=== PATIENT | male | born 1960 | race Two or more races ===

== ENCOUNTER 2016-08-12 10:55 | Emergency (ER) | payer MEDICAID, OTHER ==
[~2016-08-12] VITALS: Ht 177.8 cm; Wt 81.6 kg
[~2016-08-12 10:55] MED LIST: GLIPIZIDE5 MG ORAL; HYDROCHLOROTH12.5 M2 ORAL; LISINOPRIL2.5 MG ORAL; METFORMIN HCL500 M1 ORAL; NAPROXEN250 M1 PO
[2016-08-12] MEDS ORDERED: NKM (11:10)
[2016-08-12 11:16] VITALS: BP 159/84
[2016-08-12] MEDS ORDERED: IBUPROFEN600 MG ORAL (11:43)
[2016-08-12] MEDS ORDERED: ROBAXIN-750750 MG PO (11:43)
[2016-08-12] MEDS ORDERED: Oxycodone/Acetaminophen 5-325 ORAL ONE (11:45)
[2016-08-12 11:51] VITALS: BP 142/76
--- NOTE | 2016-08-12 11:54 | Emergency Room Report ---
History of Present Illness General Chief Complaint: Pain Source: Patient Present Illness HPI 56 YO M with 8 days of right lower back pain radiating down to right food. Worse in morning, better throughout day especially with walking. 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 Denies trauma. Denies urinary/fecal incontinence, lower extremity weakness, fever/chills, previous known back problems/surgery. Not taking OTC meds. Doesnt have PMD. Allergies: Coded Allergies: No Known Allergies (Unverified , 10/30/14) Patient History Past Medical History: none Past Surgical History: none Social History: Denies: alcohol use, drug use, smoking Immunizations: UTD Reviewed Nursing Documentation: PMH: Agreed, PSxH: Agreed Nursing Documentation-PMH Hx Hypertension: Yes Hx Diabetes: Yes Review of Systems All Other Systems: negative except mentioned in HPI Physical Exam Vital Signs Date Time Temp Pulse Resp B/P Pulse Ox O2 Delivery O2 Flow Rate FiO2 08/12/16 11:01 98.8 104 16 159/84 98 Room Air Sp02 EP Interpretation: reviewed, normal General Appearance: normal inspection, well appearing, no apparent distress, alert, GCS 15, non-toxic Head: normocephalic, atraumatic Eyes: bilateral eye EOMI, bilateral eye PERRL ENT: normal ENT inspection, hearing grossly normal, normal voice Neck: normal inspection, full range of motion, supple, no bony tend Respiratory: normal inspection, lungs clear, normal breath sounds, no respiratory distress, no retraction, no wheezing Cardiovascular #1: regular rate, rhythm, no edema Genitourinary: no CVA tenderness Musculoskeletal: normal inspection, back normal, normal range of motion, Wilmer' s Sign negative, other - + right sided SL raise test Neurologic: normal inspection, alert, oriented x3, responsive, die casting machine setter III-XII nml as tested, motor strength/tone normal, cerebellar normal, normal gait, speech normal Psychiatric: normal inspection, judgement/insight normal, mood/affect normal Skin: normal inspection, normal color, no rash Medical Decision Making Diagnostic Impression: Primary Impression: Sciatica of right side Additional Impression: Sciatica Qualified Codes: M54.31 - Sciatica, right side ER Course A: low suspicion for cord compression given well appearance, right paravertebral ttp with +SL raise test, no focal neuro deficits, absence of midline ttp/masses and pain worse with movement with known exacerbating activity Analgesia provided here Rx Robaxin/Ibuprofen and recommended PMD followup DC home Last Vital Signs Date Time Temp Pulse Resp B/P Pulse Ox O2 Delivery O2 Flow Rate FiO2 08/12/16 11:16 98.8 16 159/84 98 Room Air 08/12/16 11:01 104 Status: improved Disposition: HOME, SELF-CARE Condition: Improved Scripts Methocarbamol* (ROBAXIN-750*) 750 Mg Tablet 750 MG PO TID, #30 TAB 0 Refills Prov: MARYAN FRENCH M.D. 08/12/16 Ibuprofen* (MOTRIN*) 600 Mg Tablet 800 MG ORAL THREE TIMES A DAY, #30 TAB 0 Refills Prov: MARYAN FRENCH M.D. 08/12/16 Referrals: NOT CHOSEN IPA/,REFERRING (PCP) Patient Instructions: Sciatica, [id number] Additional Instructions: - Take ibuprofen with robaxin up to 3x a day with food as needed for pain - Apply both heat and ice to lower back for pain to see what works better - Follow up with your primary doctor in 2-3 days MARYAN FRENCH M.D. Aug 12, 2016 11:54
== END 2016-08-12 11:50 | disposition home or self-care (01) ==
LOC: EMR 11:40
DX: M54.31 Sciatica, right side (principal); I10 Essential (primary) hypertension; E11.9 Type 2 diabetes mellitus without complications
CPT/HCPCS: 99282

== ENCOUNTER 2018-02-26 18:45 | Observation (INO) | payer OTHER ==
[~2018-02-26] VITALS: Ht 177.8 cm; Wt 89.8 kg
[~2018-02-26 18:45] MED LIST changes: +IBUPROFEN600 MG ORAL; +NKM; +ROBAXIN-750750 MG PO
[2018-02-26 19:00] VITALS: BP 142/60
[2018-02-26] MEDS ORDERED: Morphine Sulfate 4mg/ml Inj (IV USE ONLY) IVP ONE (19:15)
--- NOTE | 2018-02-26 20:06 | Emergency Room Report ---
History of Present Illness General Chief Complaint: Laceration Source: Patient Present Illness HPI 57-year-old male presents to the emergency department complaining of 10 out of 10 in severity pain to the fourth and fifth fingers of the left hand. Status post sustained laceration while changing brakes. Patient states that he is right-hand dominant. Patient is reporting that he is unable to bend the left ring finger. He is up-to-date with tetanus vaccination denies taking blood thinning medications. Allergies: Coded Allergies: No Known Allergies (Unverified , 10/30/14) Patient History Past Medical History: see triage record Past Surgical History: none Pertinent Family History: none Immunizations: UTD Reviewed Nursing Documentation: PMH: Agreed; PSxH: Agreed Nursing Documentation-PMH Past Medical History: No History, Except For Hx Hypertension: Yes Hx Diabetes: Yes Review of Systems All Other Systems: negative except mentioned in HPI Physical Exam Vital Signs Date Time Temp Pulse Resp B/P (MAP) Pulse Ox O2 Delivery O2 Flow Rate FiO2 02/26/18 18:50 97.4 113 24 142/60 92 Room Air 97.3 Sp02 EP Interpretation: reviewed, normal General Appearance: alert, GCS 15, non-toxic, mild distress Head: normocephalic, atraumatic Eyes: bilateral eye normal inspection, bilateral eye PERRL ENT: hearing grossly normal, normal voice Neck: full range of motion Respiratory: lungs clear, normal breath sounds, speaking full sentences Cardiovascular #1: regular rate, rhythm, normal capillary refill Musculoskeletal: back normal, gait/station normal, normal range of motion, non- tender, other - unable to flex the left 4th digit, extension is normal. Neurologic: alert, oriented x3, responsive, motor strength/tone normal, sensory intact, speech normal, grossly normal Psychiatric: judgement/insight normal Skin: normal color, no rash, warm/dry, well hydrated, laceration - Left ring finger laceration, located on the palmar surface of the proximal portion of the phalanx. it is approx 3 cm in length with flexor tendon involvement. pt. Unable to flex the left 4th digit. Second: Left 5th finger laceration, located on the palmar surface of the proximal portion of the phalanx. it is approx 2 cm in length Lymphatic: no adenopathy Medical Decision Making PA Attestation Dr. Antonio is my supervising Physician whom patient management has been discussed with. Diagnostic Impression: Primary Impression: Laceration Additional Impression: Flexor tendon laceration, finger, open wound Qualified Codes: S56.129A - Laceration of flexor muscle, fascia and tendon of unspecified finger at forearm level, initial encounter; S61.209A - Unspecified open wound of unspecified finger without damage to nail, initial encounter ER Course 57-year-old male presents to the emergency department complaining of 10 out of 10 in severity pain to the fourth and fifth fingers of the left hand. Status post sustained laceration while changing brakes. Patient states that he is right-hand dominant. Patient is reporting that he is unable to bend the left ring finger. He is up-to-date with tetanus vaccination denies taking blood thinning medications. 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 Ddx considered but are not limited to laceration, tendon injury, cellulitis, amputation Vital signs: are WNL, pt. is afebrile H&PE are most consistent with: 1) Left ring finger laceration, located on the palmar surface of the proximal portion of the phalanx. it is approx 3 cm in length with flexor tendon involvement. pt. Unable to flex the left 4th digit. 2) Left 5th finger laceration, located on the palmar surface of the proximal portion of the phalanx. it is approx 2 cm in length ORDERS: --CBC,CMP: mild hyponatremia -PT/PTT: Unremarkable/ WNL -Type and Screen: A Positive -EKG : 100bpm NSR. ED INTERVENTIONS: - 4mg Morphine IM -Tetanus vaccine was administered as pt. vaccination status was unknown. - The wound was copiously irrigated with normal saline, and explored for foreign body for which no FB was found. -- After physical exam and wound exploration I determined that this case is more extensive and will require surgical consult as I suspect a significant tendon injury to the flexor tendons of the left ring finger. CONSULT: Dr. Kumar: After evaluation, assistant professor surgical technology concluded that surgical repair is necessary and needs to take place in the operating room in order to properly retrieve and repair tendons in hopes of restoring function to the finger. DISPOSITION: This patient is stable for discharge to Dr. Kumar for same-day outpatient surgery. Labs Test 02/26/18 20:20 White Blood Count 5.5 K/UL (4.8-10.8) Red Blood Count 4.44 M/UL (4.70-6.10) Hemoglobin 14.4 G/DL (14.2-18.0) Hematocrit 40.2 % (42.0-52.0) Mean Corpuscular Volume 91 FL (80-99) Mean Corpuscular Hemoglobin 32.3 PG (27.0-31.0) Mean Corpuscular Hemoglobin Concent 35.7 G/DL (32.0-36.0) Red Cell Distribution Width 10.0 % (11.6-14.8) Platelet Count 230 K/UL (150-450) Mean Platelet Volume 6.2 FL (6.5-10.1) Neutrophils (%) (Auto) 64.8 % (45.0-75.0) Lymphocytes (%) (Auto) 22.3 % (20.0-45.0) Monocytes (%) (Auto) 10.2 % (1.0-10.0) Eosinophils (%) (Auto) 0.9 % (0.0-3.0) Basophils (%) (Auto) 1.8 % (0.0-2.0) Prothrombin Time 10.8 SEC (9.30-11.50) Prothromb Time International Ratio 1.0 (0.9-1.1) Activated Partial Thromboplast Time 27 SEC (23-33) Sodium Level 134 MMOL/L (136-145) Potassium Level 3.8 MMOL/L (3.5-5.1) Chloride Level 99 MMOL/L (98-107) Carbon Dioxide Level 25 MMOL/L (21-32) Anion Gap 10 mmol/L (5-15) Blood Urea Nitrogen 7 mg/dL (7-18) Creatinine 0.9 MG/DL (0.55-1.30) Estimat Glomerular Filtration Rate > 60 mL/min (>60) Glucose Level 131 MG/DL (74-106) Calcium Level 8.8 MG/DL (8.5-10.1) Total Bilirubin 0.6 MG/DL (0.2-1.0) Aspartate Amino Transf (AST/SGOT) 48 U/L (15-37) Alanine Aminotransferase (ALT/SGPT) 42 U/L (12-78) Alkaline Phosphatase 89 U/L (46-116) Total Protein 7.9 G/DL (6.4-8.2) Albumin 3.6 G/DL (3.4-5.0) Globulin 4.3 g/dL Albumin/Globulin Ratio 0.8 (1.0-2.7) EKG Diagnostic Results EP Interpretation: Dr. Antonio Rate: normal - 100bpm Rhythm: NSR ST Segments: no acute changes ASA given to the pt in ED: No PA Scribe Text This Interpretation was scribed by SUNDAY Araiza. Other X-Ray Diagnostic Results Other X-Ray Diagnostic Results : X-Ray ordered: Hand Left # of Views/Limited Vs Complete: 3 View Indication: Pain EP Interpretation: Yes PA Xray: Interpretation reviewed, by supervising MD, and agrees with findings. Interpretation: no dislocation, no fractures, other - soft tissue laceration 4th and 5th digits Impression: Other - abnormal Electronically Signed by: Amina Araiza PA-C Last Vital Signs Date Time Temp Pulse Resp B/P (MAP) Pulse Ox O2 Delivery O2 Flow Rate FiO2 02/26/18 19:19 97.4 02/26/18 18:50 113 24 142/60 92 Room Air Disposition: HOME, SELF-CARE - direct to sameday outpatient surgery in [facility]- Dr. Kumar Condition: Stable Referrals: RU KUMAR M.D. Patient Instructions: Laceration Care, Adult Additional Instructions: Take medications as directed. * Directly going to OR for same day surgical repair by Dr. Kumar. Follow up with Dr. Ru Kumar at the time frame instructed by him - Below is his referral information Return sooner to ED if new symptoms occur, or current symptoms become worse. - Please note that this Emergency Department Report was dictated using [employer] administrator technology software, occasionally this can lead to erroneous entry secondary to interpretation by the dictation equipment. Amina Araiza Feb 26, 2018 20:06
[2018-02-26 20:48] LABS: BASOPHILS % (AUTO) 1.8 % (0.0-2.0); EOSINOPHILS % (AUTO) 0.9 % (0.0-3.0); HEMATOCRIT 40.2 % (42.0-52.0); HEMOGLOBIN 14.4 G/DL (14.2-18.0); LYMPHOCYTES % (AUTO) 22.3 % (20.0-45.0); MEAN CORPUSCULAR VOLUME 91 FL (80-99); MONOCYTES % (AUTO) 10.2 % (1.0-10.0); NEUTROPHILS % (AUTO) 64.8 % (45.0-75.0); PLATELET COUNT 230 K/UL (150-450); RED BLOOD COUNT 4.44 M/UL (4.70-6.10); WHITE BLOOD COUNT 5.5 K/UL (4.8-10.8)
[2018-02-26 21:07] LABS: ANION GAP 10 mmol/L (5-15); BLOOD UREA NITROGEN 7 mg/dL (7-18); CALCIUM 8.8 MG/DL (8.5-10.1); CARBON DIOXIDE 25 MMOL/L (21-32); CHLORIDE 99 MMOL/L (98-107); CREATININE 0.9 MG/DL (0.55-1.30); POTASSIUM 3.8 MMOL/L (3.5-5.1); SODIUM 134 MMOL/L (136-145)
[2018-02-26 21:11] LABS: ALANINE AMINOTRANSFERASE 42 U/L (12-78); ALBUMIN 3.6 G/DL (3.4-5.0); ALBUMIN/GLOBULIN RATIO 0.8 (1.0-2.7); ALKALINE PHOSPHATASE 89 U/L (46-116); ASPARTATE AMINO TRANSFERASE 48 U/L (15-37); BILIRUBIN,TOTAL 0.6 MG/DL (0.2-1.0)
--- NOTE | 2018-02-26 21:34 | Pre-Procedure Note/Attestation ---
Pre-Procedure Note/Attestation Complete Prior to Procedure Planned Procedure: left Procedure Narrative: Left hand wound exploration, repair of extensor tensions and other injured structures Indications for Procedure Pre-Operative Diagnosis: Left hand ring and small finger lacerations with disruption of extensor tendons Attestation I attest that I discussed the nature of the procedure; its benefits; risks and complications; and alternatives (and the risks and benefits of such alternatives ), prior to the procedure, with the patient (or the patient's legal novelties sales representative). I attest that, if there was a reasonable possibility of needing a blood transfusion, the patient (or the patient's legal novelties sales representative) was given the [place] Department of Health Services standardized written summary, pursuant to the Daniel Yolande Blood Safety Act ([place] Health and Safety Code # 1645, as amended). I attest that I re-evaluated the patient just prior to the surgery and that there has been no change in the patient's H&P, except as documented below: RU KUMAR M.D. Feb 26, 2018 21:34
[2018-02-26] MEDS ORDERED: Bupivacaine 0.5% Inj 30 ml vial INJ ONE (21:48)
[2018-02-26] MEDS ORDERED: Bacitracin Oint 15gm Tube TOPIC ONE (21:48)
[2018-02-26] MEDS ORDERED: Lidocaine 1% 10mg/ml/Epi 0.005mg/ml 30ml vial INJ ONE (21:48)
[2018-02-26] MEDS ORDERED: fentaNYL 100 mcg/2 mL IV ONE (21:49)
[2018-02-26] MEDS ORDERED: Bupivacaine 0.25% Inj 30ml INJ ONE (21:49)
[2018-02-26] MEDS ORDERED: Bacitracin 50000 Units Vial ONE (21:49)
[2018-02-26] MEDS ORDERED: Lidocaine 1% MPF 10mg/ml 5ml ONE (21:50)
[2018-02-26] MEDS ORDERED: Ketorolac 30mg Inj ONE (21:50)
[2018-02-26] MEDS ORDERED: Midazolam 2mg/2ml Inj ONE (21:50)
[2018-02-26] MEDS ORDERED: Propofol 200mg/20ml IV ONE (21:50)
[2018-02-26] MEDS ORDERED: Sterile Water Irrig 1000ml IRRIG ONE (22:00)
[2018-02-26] MEDS ORDERED: LR 1000ml ONE (22:00)
[2018-02-26 22:02] VITALS: BP 140/70
[2018-02-26] MEDS ORDERED: NS Irrig 1000ml IRRIG ONE (22:44)
[2018-02-26] MEDS ORDERED: fentaNYL 100 mcg/2 mL IV PRN ×2 (22:45→23:00)
[2018-02-26] MEDS ORDERED: Meperidine 50mg/ml Inj(FOR RIGORS ONLY) IV PRN ×2 (22:45→23:15)
[2018-02-26] MEDS ORDERED: DiphenhydrAMINE 50mg/ml Inj IVP PRN ×2 (22:45→23:15)
[2018-02-26] MEDS ORDERED: LR 1000ml 1,000 ML IVLG SCH (22:45)
--- NOTE | 2018-02-26 22:45 | Anethesia Preoperative Eval ---
Anesthesia Pre-op PMH/ROS General Date of Evaluation: Feb 26, 2018 Time of Evaluation: 22:05 Anesthesiologist: Sheryl ASA Score: ASA 3 Mallampati Score Class I : Soft palate, uvula, fauces, pillars visible Class II: Soft palate, uvula, fauces visible Class III: Soft palate, base of uvula visible Class IV: Only hard plate visible Mallampati Classification: Class II Surgeon: George Diagnosis: L wrist laceration Surgical Procedure: Wound exploration of L 4-th and 5-th fingers Anesthesia History: none Family History: no anesthesia problems Allergies: Coded Allergies: No Known Allergies (Unverified , 10/30/14) Medications: see eMAR Past Medical History Cardiovascular: Reports: HTN; Denies: CAD, VA, valve dz, arrhythmia, other Pulmonary: Denies: asthma, COPD, BLAZE, other Gastrointestinal/Genitourinary: Reports: GERD; Denies: CRI, ESRD, other Neurologic/Psychiatric: Denies: dementia, CVA, depression/anxiety, TIA, other Endocrine: Reports: DM; Denies: hypothyroidism, steroids, other HEENT: Denies: cataract (L), cataract (R), glaucoma, [place] (L), [place] (R), other Hematology/Immune: Denies: anemia, DVT, bleeding disorder, other Musculoskeletal/Integumentary: Reports: DJD; Denies: OA, RA, DDD, edema, other PMH Narrative: as above, admitted for acute traumatic injury PSxH Narrative: See H&P Anesthesia Pre-op Phys. Exam Physician Exam Last Vital Signs Date Time Temp Pulse Resp B/P (MAP) Pulse Ox O2 Delivery O2 Flow Rate FiO2 02/26/18 22:02 98.0 72 24 140/70 92 Room Air 98.0 Constitutional: NAD Neurologic: CN 2-12 intact Cardiovascular: RRR, no M/R/G Respiratory: CTA Gastrointestinal: S/NT/ND Airway Exam Mallampati Score: Class II MO: full Neck: stiff ROM: limited Teeth: missing Dentures: no upper, no lower Anesthesia Pre-op A/P Labs Hematology Test 02/26/18 20:20 White Blood Count 5.5 K/UL (4.8-10.8) Red Blood Count 4.44 M/UL (4.70-6.10) L Hemoglobin 14.4 G/DL (14.2-18.0) Hematocrit 40.2 % (42.0-52.0) L Mean Corpuscular Volume 91 FL (80-99) Mean Corpuscular Hemoglobin 32.3 PG (27.0-31.0) H Mean Corpuscular Hemoglobin Concent 35.7 G/DL (32.0-36.0) Red Cell Distribution Width 10.0 % (11.6-14.8) L Platelet Count 230 K/UL (150-450) Mean Platelet Volume 6.2 FL (6.5-10.1) L Neutrophils (%) (Auto) 64.8 % (45.0-75.0) Lymphocytes (%) (Auto) 22.3 % (20.0-45.0) Monocytes (%) (Auto) 10.2 % (1.0-10.0) H Eosinophils (%) (Auto) 0.9 % (0.0-3.0) Basophils (%) (Auto) 1.8 % (0.0-2.0) Coagulation Test 02/26/18 20:20 Prothrombin Time 10.8 SEC (9.30-11.50) Prothromb Time International Ratio 1.0 (0.9-1.1) Activated Partial Thromboplast Time 27 SEC (23-33) Chemistry Test 02/26/18 20:20 Sodium Level 134 MMOL/L (136-145) L Potassium Level 3.8 MMOL/L (3.5-5.1) Chloride Level 99 MMOL/L (98-107) Carbon Dioxide Level 25 MMOL/L (21-32) Anion Gap 10 mmol/L (5-15) Blood Urea Nitrogen 7 mg/dL (7-18) Creatinine 0.9 MG/DL (0.55-1.30) Estimat Glomerular Filtration Rate > 60 mL/min (>60) Glucose Level 131 MG/DL (74-106) H Calcium Level 8.8 MG/DL (8.5-10.1) Total Bilirubin 0.6 MG/DL (0.2-1.0) Aspartate Amino Transf (AST/SGOT) 48 U/L (15-37) H Alanine Aminotransferase (ALT/SGPT) 42 U/L (12-78) Alkaline Phosphatase 89 U/L (46-116) Total Protein 7.9 G/DL (6.4-8.2) Albumin 3.6 G/DL (3.4-5.0) Globulin 4.3 g/dL Albumin/Globulin Ratio 0.8 (1.0-2.7) L Studies Pre-op Studies: EKG - SR Risk Assessment & Plan Assessment: ASA 3 Plan: GA with LMA Status Change Before Surgery: No Pre-Antibiotics Drug: Ancef 1gr Given Within 1 Hr of Incision: Yes Time Given: 22:34 Manolo Saucedo MD Feb 26, 2018 22:45
[2018-02-27] VITALS (16 sets, daily range): BP systolic 119–190; BP diastolic 51–89
--- NOTE | 2018-02-27 00:02 | Brief Operative Note ---
Immediate Post Operative Note Operative Note Pre-op Diagnosis: Left hand ring and small finger lacerations with disruption of extensor tendons Procedure: Left ring and small finger wound exploration, repair or ring FDS and FDP, repair or small finger FDP, and Pulleys. Post-op Diagnosis: same as pre-op Surgeon: Ru Kumar Anesthesia: general Specimen: none Complications: none Condition: stable Fluids: LR Estimated Blood Loss: minimal Drains: none Tourniquet time: 80 Implant(s) used?: No RU KUMAR M.D. Feb 27, 2018 00:02
--- NOTE | 2018-02-27 00:13 | Immediate Post-Op Evaluation ---
Immediate Post-Op Evalulation Immediate Post-Op Evalulation Procedure: Exploration of the wound and tendonrepair of L 4-th and 5-th fingers Date of Evaluation: Feb 27, 2018 Time of Evaluation: 00:12 IV Fluids: 1200 Blood Products: none Estimated Blood Loss: >50 Urinary Output: none Blood Pressure Systolic: 131 Blood Pressure Diastolic: 86 Pulse Rate: 88 Respiratory Rate: 20 O2 Sat by Pulse Oximetry: 99 Temperature (Fahrenheit): 97.9 Pain Score (1-10): 2 Nausea: No Vomiting: No Complications none Patient Status: reacts, patent, none Hydration Status: adequate Manolo Saucedo MD Feb 27, 2018 00:13
[2018-02-27] MEDS ORDERED: LR 1000ml 1,000 ML IVLG SCH (00:43)
[2018-02-27] MEDS ORDERED: Morphine Sulfate 2mg/ml Inj(IV/IM USE ONLY) IVP PRN ×3 (01:30→12:39)
[2018-02-27] MEDS ORDERED: oxyCODONE HCL/Acetaminophen 5/325mg ORAL PRN ×2 (01:30→09:00)
--- NOTE | 2018-02-27 02:30 | History and Physical Report ---
DATE OF ADMISSION: 02/26/2018 HISTORY OF PRESENT ILLNESS: The patient is a 57-year-old male, who was working on his car at home and a wire slipped. The wire recoiled and lacerated his left hand. He complains of not being able to flex his ring finger and is able to flex his small finger. He is brought in to [facility] emergency room for evaluation and treatment. PAST MEDICAL HISTORY: High blood pressure. PAST SURGICAL HISTORY: Right great toe dorsal foot laceration repair. CURRENT MEDICATIONS: High blood pressure medications. ALLERGY TO MEDICATIONS: None. FAMILY HISTORY: Noncontributory. SOCIAL HISTORY: Drinks socially. Does not use drugs or smoke tobacco. REVIEW OF SYSTEMS: He has not been unable to flex his left ring finger and has an open wound and pain in his left ring and small finger. REVIEW OF SYSTEMS: A 12-point review of system is normal and unremarkable. PHYSICAL EXAM: GENERAL: The patient is sitting on the stretcher comfortable, in no acute distress. Hemodynamically stable. Afebrile. HEENT: Head is normocephalic and atraumatic. Pupils are equal, round, and reactive to light. Extraocular motion intact, symmetrical bilaterally. External face, ears, nose, mouth, and oral cavity appeared grossly normal. NECK: Supple. No palpable masses. No adenopathy. CHEST: Clear to auscultation. No wheezes, rales, or crackles. CVS: Normal sinus rhythm. Normal S1, S2. No murmurs, rubs, or gallops. ABDOMEN: Soft, nontender, and nondistended. No guarding, rebound, or rigidity. EXTREMITIES: Full range of motion except for the left ring finger. No gross deformities except for the laceration of the left ring and small finger over the proximal portion of the proximal phalanx on the flexor aspects of both fingers. The patient is unable to flex his ring finger. Able to flex his small finger on the left side, but is weaker than fingers 1-3, with some loss of flexion as compared to the normal finger cascade. He has a transverse laceration just distal to the metacarpophalangeal crease in both fingers. No other gross deformities. Pulses 2+ throughout. Good strength, 5/5 except for the ring finger and small finger. ASSESSMENT AND PLAN: The patient is a 57-year-old male with lacerations across to his left ring and small finger with disruption of flexors tendon to the ring finger, possible partial laceration of the small finger flexor tendon and possible disruption of one of the flexor tendons. He will need surgical exploration and repair of these flexor tendons as well as any other structures that may be injured. Risks, benefits, and alternatives were discussed with the patient. He understands and agrees to proceed with surgery. Arrangements will be made. Jared Vazquez M.D. DR: EMMANUELLE JOB#: [id number] CC: SHEA
[2018-02-27] MEDS ORDERED: D5 1/2NS 1,000 ML IV SCH ×2 (03:00→08:45)
[2018-02-27] MEDS ORDERED: Morphine Sulfate 2mg/ml Inj(IV/IM USE ONLY) ONE (08:34)
--- NOTE | 2018-02-27 08:53 | Diagnostic Imaging Report ---
Indication: Pain Technique: 3 views left hand Comparison: none Findings: Fairly severe erosive arthropathy of the fifth distal interphalangeal joint is noted. There are less extensive degenerative changes of the third and fourth distal interphalangeal joints. No acute fractures. No dislocations. There is degenerative change of the first carpometacarpal joint. There are extensive vascular calcifications Impression: Degenerative changes, as described No acute bony trauma
[2018-02-27] MEDS ORDERED: Cephalexin 500mg cap ORAL SCH (09:00)
[2018-02-27] MEDS: Cephalexin 500mg cap ORAL SCH ×3 (09:12→16:58)
--- NOTE | 2018-02-27 12:17 | Cardiology Report ---
APPROVED REPORT EKG Measurement Heart [id number] [place] [id number] Normal sinus rhythm Normal ECG
--- NOTE | 2018-02-27 15:00 | 48 Hour Post Anesthesia Eval ---
Post Anesthesia Evaluation Procedure: Exploration of the wound and tendon repair of L 4-th and 5-th fingers Date of Evaluation: Feb 27, 2018 Time of Evaluation: 14:58 Blood Pressure Systolic: 136 0: 84 Pulse Rate: 76 Respiratory Rate: 20 Temperature (Fahrenheit): 97.6 O2 Sat by Pulse Oximetry: 98 Airway: patent Nausea: No Vomiting: No Pain Intensity: 3 Hydration Status: adequate Cardiopulmonary Status: stable Mental Status/LOC: patient returned to baseline Follow-up Care/Observations: n/a Post-Anesthesia Complications: none Follow-up care needed: ready to discharge Manolo Saucedo MD Feb 27, 2018 15:00
[2018-02-27] MEDS ORDERED: hydroCHLOROthiazide 12.5mg TAB ORAL SCH (16:45)
[2018-02-27] MEDS ORDERED: Lisinopril 2.5mg tab ORAL SCH (16:45)
[2018-02-28] MEDS ORDERED: GlipiZIDE 5mg tab ORAL SCH (09:00)
--- NOTE | 2018-03-02 21:45 | Operative Note - Dictated ---
DATE OF OPERATION: 02/26/2018 PREOPERATIVE DIAGNOSIS: Open wound of the left hand involving the left ring and small finger. POSTOPERATIVE DIAGNOSIS: Transected FDS and FDP of the left ring finger. Transected FDP of the small finger with partial transection of the FDS. SURGEON: Jared Vazquez M.D. SAWDUST MACHINE OPERATOR: None. PROCEDURE: Left hand exploration, wound debridement, repair of left ring FDS and FDP tendons, repair of small finger FDP and FDS tendons, repair of A2 and A3 pulleys of the left small and ring fingers and application of Extension blocking splint. COMPLICATIONS: None. TOURNIQUET TIME: 80 minutes. ESTIMATED BLOOD LOSS: Minimal. FINDINGS DURING THIS PROCEDURE: In the left ring and small fingers, there is a transverse laceration across the mid portion of the proximal phalanx of small and ring finger. Exploration of these wounds showed that FDP and FDS of the left ring finder was completely transected, with the mid-portion of the proximal phalanx visible at the base of the wound. There was a complete transection of the FDP of the small finger as well, with a partially transected FDS. The transected FDS and FDP were retracted proximally into the distal palm, and also distally towards the insertion point on the phalanx. The level of tendon transection was very close to the insertion points on the bone. The A2 and A3 pulleys had to be opened and reconstructed during this procedure. OPERATIVE PROCEDURE NOTE IN DETAIL: The patient was prepped and draped in the usual sterile fashion after general anesthesia was induced. A tourniquet was placed in the left arm and the left arm and hand was exsanguinated using the Esmarch bandage. Tourniquet was inflated to 250 mmHg. Once the tourniquet was inflated, Esmarch bandage was released. The laceration to the left ring finger was explored first. No FDS or FDP was visible within the tendon sheaths proximally or distally. Modified Raul incisions were made proximally and distally to extend the laceration and to open the soft tissue so that I could better visualize the extent of the the tendon and soft tissue injury. Careful dissection showed that there was an absence of FDS and FDP in the left ring finger. A2 and A3 pulleys had to be divided and the ring finger had to be explored and the FDS and FDP had to be pulled back out to length after fishing it out of the palm of the hand. The FDS and FDP tendons were then pulled out to length and tagged with 3-0 nylon sutures. Distally, the FDS and FDP stumps were identified and near the insertion into the phalangeal bone by flexing the PIP joint and milking the tendon stumps into the operative site. The FDS and FDP were repaired using 4-0 Mersilene and modified Davis sutures and [id number] sutures. FDP was reattached to the central tendon stump while the FDS was reattached laterally to the two corresponding stumps on the unlar and radial aspects of the middle phalanx. Once the FDS and FDP of the proximal phalanx was repaire, the A2 and A3 pulleys of the ring finger were repaired using the 4-0 Mersilene sutures. Once that was completed, the modified Raul incisions were closed after irrigating the wound using normal saline with triple antibiotics. 3-0 Nylon sutures were used to anchor the apex points of the incision, and then a 3-0 nylon running continuous suture was used to close the length of the ring finger incision. I turned my attention to the small finger. Similarly, a modified Raul incisions were made in the small finger distally and proximally to better expose the wound and visualize the tendon injuries. No FDP was visualized in the small finger wound, and only a part of the FDS tendon could be seen. The radial band of the FDS after it had split in two, could be visualized. The ulnar slip was transected, but the ends could still be visualized. So, after extending the laceration incision, the opening A2 and A3 pulleys had to also be divided to explore find the retracted ends of the FDP tendon. Similar to the ring finger, the FDP tendon had to be fished out of the distal palm. The DIP joint of the ring finger had to be flexed to milk the distal FDP stump into the operative site. These cut ends of the FDP and FDS tendons were marked using 3-0 nylon sutures. Once they were identified and tagged, they were suture repaired using 4-0 Mersilene modified Davis sutures 8-strand repairs. Once the tendons were repaired, the A2 and A3 pulleys were sutured back and repaired using interrupted 4-0 Mersilene sutures. The modified Raul incisions were then closed using 3-0 nylon interrupted sutures and running continuous sutures. Once the incisions of the fingers were closed, the natural cascade of the digits had been restored. Antibiotic ointment and Xeroform gauze was placed over the incisions. A bulky sterile dressing was applied to the left hand. The tourniquet was released and the ring and small fingers became pink and restored normal capillary blood flow. The patient tolerated the procedure well without any problem. The patient was extubated in the operating room and transferred to the postanesthesia care unit in good stable condition. Jared Vazquez M.D. DR: MERI JOB#: [id number] CC: SHEA
--- NOTE | 2018-03-26 16:44 | Discharge Summary ---
Discharge Summary Discharge Summary _ DATE OF ADMISSION: 02/27/2018 DATE OF DISCHARGE: 02/27/2018 BRIEF HOSPITAL COURSE: Patient is a 57-year-old male, who presented to ED due to laceration on the left hand. Patient was working on his car at home and a wire slipped. The wire recoiled and lacerated his left hand. He complained of not being able to flex his ring finger, however, is able to flex the small digit. He has 10 out of 10 pain to the fourth and fifth finger of the left hand. He is right-handed dominant. He has medical history of high blood pressure. On evaluation at ED, he had left finger laceration located on the palmar surface of the proximal portion of the phalanx. It is approximately 3 cm in length with flexor tendon involvement. Unable to flex the left fourth digit. Left fifth digit laceration was located on the palmar surface of the proximal portion of the phalanx approximately 2 cm in length. He was given tetanus vaccine. He was given morphine for pain. Left hand x-ray did not show any acute bony trauma. Wound was irrigated and explored for foreign body, none was found. Emergent surgical consultation was done with Dr. Vazquez. Patient had laceration across his left ring and small finger with disruption of flexor tendon to the ring finger. Patient would need surgical repair and exploration of flexor tendons. He was then admitted under observation. He underwent left hand exploration, wound debridement, repair of left ring FDS and FDP tendons, repair of small finger FDP and FDS tendons, repair of A2 and A3 police of the left small and ring fingers and application of extension blocking splint by Dr. Vazquez. He tolerated procedure well. He was given pain management and Keflex. He was restarted on his home medications. He was instructed to keep left arm elevated. He was doing well post-operatively. Vitals were stable. He was discharged home, advised to follow-up as outpatient. FINAL DIAGNOSES: Open wound of the left hand involving the left ring and small finger Transected FDS and FDP of the left ring finger Transected FDP of the small finger with partial transection of the FDS Status post left hand exploration, wound debridement, repair of left ring FDS and FDP tendons, repair of small finger FDP and FDS tendons, repair of A2 and A3 police of the left small and ring fingers; and application of Extension blocking splint DISPOSITION: Patient was discharged home. DISCHARGE INSTRUCTIONS: Follow up within a week. I have been assigned to dictate discharge summary on this account, and I was not involved in the patient's management. Nicolette Logan NP Mar 26, 2018 16:44
== END 2018-02-27 19:30 | disposition home or self-care (01) ==
LOC: EMR 19:32 → SDS 20:00 → EMR 22:10 → EDBEDREQ 02-27 00:21 → 3E 02-27 01:59
DX: S66.125A Laceration of flexor muscle, fascia and tendon of left ring finger at wrist and hand level, initial encounter (principal); S66.127A Laceration of flexor muscle, fascia and tendon of left little finger at wrist and hand level, initial encounter; S61.217A Laceration without foreign body of left little finger without damage to nail, initial encounter; S61.215A Laceration without foreign body of left ring finger without damage to nail, initial encounter; W45.8XXA Other foreign body or object entering through skin, initial encounter; W22.8XXA Striking against or struck by other objects, initial encounter; Y93.89 Activity, other specified; Y92.015 Private garage of single-family (private) house as the place of occurrence of the external cause
CPT/HCPCS: 26350; 36415; 73130; 80053; 82962; 85025; 85610; 85730; 86850; 86900; 86901; 93005; 96360; 96361; 96376; 99285; G0378; J0690; J1885; J2250; J2270; J2405; J2704; J3010; J3490; J7120; Z7512; 94003; 94150

== ENCOUNTER 2019-06-10 20:50 | Emergency (ER) | payer OTHER ==
[~2019-06-10] VITALS: Ht 175.3 cm; Wt 88.0 kg
--- NOTE | 2019-06-10 21:05 | NUR ---
ED Nurse Note: Patient walked into ED with 1 crutch c/o injury on his right big toe, patient states that at round 1100 today patient kicked a door to which he injured his right big toe, patients toe is deofmred and the nail is unken in with a hematoma located on the right side of the big toe, rates his pain a 10/10 pain, states that he is still able to feel, pulses felt on his right dorsalis pedis, patient placed in a bed with injured toe exposed. will continue to monitor
--- NOTE | 2019-06-10 21:09 | Emergency Room Report ---
History of Present Illness General Chief Complaint: Lower Extremity Injury Source: Patient Present Illness HPI 58 year-old male presents with right great toe pain, patient kicked it against the door, very hard, he endorses pain with movement of his first great toe, sharp in nature alleviated by not moving his toe, severity is moderate, intermittent. Patient presents for evaluation. Allergies: Coded Allergies: No Known Allergies (Unverified , 10/30/14) Patient History Past Medical History: see triage record Reviewed Nursing Documentation: PMH: Agreed; PSxH: Agreed Nursing Documentation-PMH Hx Hypertension: Yes Hx Diabetes: Yes Review of Systems All Other Systems: negative except mentioned in HPI Physical Exam Vital Signs Date Time Temp Pulse Resp B/P (MAP) Pulse Ox O2 Delivery O2 Flow Rate FiO2 06/10/19 20:54 98.1 92 16 93/40 (57) 96 Room Air General Appearance: well appearing, no apparent distress Head: normocephalic, atraumatic ENT: hearing grossly normal, normal voice Neck: full range of motion, supple Respiratory: no respiratory distress, speaking full sentences Musculoskeletal: other - Right great toe: Bleeding, skin avulsed, no pus no drainage, 1+ PT DP, fires EHL, 5 out of 5 plantar dorsiflexion at ankle Neurologic: alert, normal gait Psychiatric: mood/affect normal Skin: no rash Medical Decision Making Diagnostic Impression: Primary Impression: Toe pain, right ER Course 58 year old male presents with right toe pain, after hitting it against a door. DDX includes fracture, contusion XR shows no acute fracture Patient placed in walking boot Abx for open skin wound Follow-up with PCP Other X-Ray Diagnostic Results Other X-Ray Diagnostic Results : X-Ray ordered: Right foot # of Views/Limited Vs Complete: 3 View Indication: Pain EP Interpretation: Yes Interpretation: no fractures Impression: Other - No acute fracture dislocation Electronically Signed by: Torito Beavers MD Last Vital Signs Date Time Temp Pulse Resp B/P (MAP) Pulse Ox O2 Delivery O2 Flow Rate FiO2 06/10/19 20:54 98.1 92 16 93/40 (57) 96 Room Air Disposition: HOME, SELF-CARE Condition: Stable Scripts Cephalexin* (KEFLEX*) 500 Mg Tablet 500 MG ORAL EVERY 6 HOURS, #28 CAP Prov: Torito Beavers MD 06/10/19 Naproxen* (NAPROSYN*) 250 Mg Tablet 250 MG ORAL BID PRN for For Pain, #20 TAB 0 Refills Prov: Torito Beavers MD 06/10/19 Referrals: Yoni Wang [facility] Patient Instructions: Foot Contusion Additional Instructions: The patient was provided with discharge instructions, notified to follow-up with a primary care doctor and or specialist in the next 24-48 hours, and to return to the ED if they have worsening of their symptoms. Please note that this report is being documented using [employer] technology. This can lead to erroneous entry secondary to incorrect interpretation by the dictating instrument. FOLLOW-UP WITH PODIATRY IN 24-48 HOURS Torito Beavers MD Jun 10, 2019 21:09
[2019-06-10] MEDS ORDERED: NAPROXEN250 MG ORAL (21:25)
[2019-06-10] MEDS ORDERED: CEPHALEXIN500 M1 ORAL (21:25)
[2019-06-10] MEDS ORDERED: Bacitracin Oint UD TOPIC ONE (21:30)
[2019-06-10 21:32] VITALS: BP 105/53
--- NOTE | 2019-06-10 21:32 | NUR ---
ER DISCHARGE NOTE: Patient is cleared to be discharged per ERMD, pt is aox4, on room air, with stable vital signs. pt was given dc and prescription instructions, pt was able to verbalize understanding, pt id band and iv site removed without complications. pt is able to ambulate with steady gait. pt took all belongings.
--- NOTE | 2019-06-11 12:32 | Diagnostic Imaging Report ---
Indication: Foot Pain Comparison: None Findings: 3 views of the right foot were obtained. No acute fractures, malalignment, erosions or periostitis are identified. There is narrowing of the first MTP joint several of the interphalangeal joints. There are small vessel arterial calcifications present. IMPRESSION: No acute injury identified
== END 2019-06-10 21:33 | disposition home or self-care (01) ==
LOC: EMR 21:10
DX: M79.674 Pain in right toe(s) (principal); I10 Essential (primary) hypertension; E11.9 Type 2 diabetes mellitus without complications
CPT/HCPCS: 73630; Z7502; 99283